=== PATIENT | female | born 1965 | race Caucasian/White ===

== ENCOUNTER → 2020-08-28 16:00 | Outpatient (CLI) | payer OTHER, SELFPAY ==
--- NOTE | 2020-08-28 | DI.US.S_ITS ---
PROCEDURE: US PERIPH VENOUS LOW EXTREM LT INDICATIONS: Leg swelling. Clinical concern for DVT TECHNIQUE: Real-time imaging, as well as color and pulse Doppler interrogation, were performed of the lower extremity deep veins from the inguinal ligament to the popliteal fossa. COMPARISON: [facility]ound, US, US VENOUS LEG DPLX UNI LT, 05/02/2017, 15:09. [facility], US, PVE UNILATERAL LEFT, 01/20/2018, 10:11. FINDINGS: The common femoral, femoral and popliteal veins are normally compressible, and free of intraluminal thrombus. Color and pulse Doppler demonstrate normal phasic intraluminal flow. There is normal augmentation response to distal compression maneuver. Generalized prominent soft tissue edema is seen. An enlarged left groin lymph node is seen that measures 4.7 x 3.5 x 1.1 cm. IMPRESSION: Negative for deep venous thrombosis. Soft tissue edema is seen. There is a prominent left groin lymph node seen. Dictated by: Abraham Maria M.D. on 08/28/2020 at 16:07 Approved by: Abraham Maria M.D. on 08/28/2020 at 16:08
== END ==
PROVIDERS: Referring Provider Physician Assistant; Visit Provider Physician Assistant
DX: M79.89 Other specified soft tissue disorders (principal); R59.0 Localized enlarged lymph nodes
CPT/HCPCS: 93971

== ENCOUNTER → 2023-10-23 11:40 | Outpatient (CLI) | payer OTHER, SELFPAY ==
--- NOTE | 2023-10-23 11:43 | DI.RAD.S_ITS ---
PROCEDURE: XR ANKLE RT MIN 3V INDICATIONS: FOOT/ANKLE PAIN' TECHNIQUE: 3 views of the ankle were acquired. COMPARISON: Foot radiograph 08/27/2023, 12 11 2017 FINDINGS: Bones: No fractures or dislocations. Ankle mortise is intact and normally aligned. No suspicious bony lesions. Partially visualized 5th metatarsal fracture. Please see separately dictated same day foot radiographs for full details. Soft tissues: No tibiotalar joint effusion. Achilles tendon appears normal. IMPRESSION: No acute bony abnormality or significant effusion. Please see separately dictated foot radiographs for detail of 5th metatarsal fracture. Approved by: Josefina Taylor M.D. on 10/23/2023 at 17:56
--- NOTE | 2023-10-23 11:44 | DI.RAD.S_ITS ---
PROCEDURE: XR FOOT RT MIN 3V INDICATIONS: FOOT/ANKLE PAIN TECHNIQUE: 3 views of the foot were acquired. COMPARISON: [facility], , FOOT 3V LEFT, 06/17/2013, 16:06., 12/11/2017, 08/27/2023 FINDINGS: Bones: Since prior radiograph on 08/27/2023, there is new comminuted fracture of the 5th metatarsal shaft. Hallux valgus and lateral angulation of 2nd 3rd MTP joints, unchanged from prior. Similar appearance of chronic osseous erosions at the metatarsal heads. Retrocalcaneal and plantar enthesophytes. Soft tissues: No tibiotalar joint effusion. Achilles tendon appears normal. Soft tissue swelling of the lateral aspect of the foot. IMPRESSION: Comminuted and mildly displaced fracture of the 5th metatarsal shaft. Approved by: Josefina Taylor M.D. on 10/23/2023 at 18:00
== END ==
PROVIDERS: Referring Provider Family Medicine; Visit Provider Family Medicine
DX: S92.351A Displaced fracture of fifth metatarsal bone, right foot, initial encounter for closed fracture (principal); M20.11 Hallux valgus (acquired), right foot; M25.571 Pain in right ankle and joints of right foot; X58.XXXA Exposure to other specified factors, initial encounter
CPT/HCPCS: 73610; 73630